=== PATIENT | female | born 1955 | race Caucasian/White ===

== ENCOUNTER 2022-12-08 10:09 | Outpatient (CLI) | payer MEDICARE, SELFPAY ==
--- NOTE | 2022-12-08 10:26 | XRR_ITS ---
PROCEDURE INFORMATION: Exam: XR Cervical Spine Exam date and time: 12/08/2022 10:29 AM Age: 67 years old Clinical indication: Neck pain; Patient HX: Pain in the patient's neck and numbness down both arms for a couple of months. The patient also states that they get frequent headaches; Additional info: Arm nubness, neck pain TECHNIQUE: Imaging protocol: Radiologic exam of the cervical spine. Views: 4 or 5 views. COMPARISON: No relevant prior studies available. FINDINGS: Bones/joints: Lower cervical spine moderate to severe disc space narrowing and productive degenerative endplate changes most significant at C5-C6 and C6-C7. Soft tissues: Unremarkable. XR/XR cervical spine 4-5V [id number] IMPRESSION: Lower cervical spine moderate to severe disc space narrowing and productive degenerative endplate changes most significant at C5-C6 and C6-C7.
== END 2022-12-08 10:10 | disposition home or self-care (01) ==
LOC: RAD 10:18
PROVIDERS: PCP Family Medicine; Visit Provider Family Medicine
DX: M54.2 Cervicalgia (principal); R20.0 Anesthesia of skin; M47.812 Spondylosis without myelopathy or radiculopathy, cervical region
CPT/HCPCS: 72050

== ENCOUNTER 2022-12-15 12:11 | Outpatient (CLI) | payer MEDICARE, SELFPAY ==
--- NOTE | 2022-12-15 12:18 | CT_ITS ---
WS: [id number] LDCT LUNG CANCER SCREENING HISTORY: NICOTINE DEPENDENCE, CIGARETTES, UNCOMPLICATED TECHNIQUE: Axial imaging performed from the apices to 1 cm below the costophrenic angles. Coronal and sagittal reformats are submitted with axial MIP series. All CT scans at [facility] use at least one of these dose optimization techniques: automated exposure control; mA and/or kV adjustment per patient size (includes targeted exams where dose is matched to clinical indication); or iterativ e reconstruction. DLP: 49.82 mGy.cm DIvol: Mean CTDIvol: 0.80 (mGy) COMPARISON: None available. Diagnostic quality: Satisfactory Lungs: No pulmonary nodule or mass. Minimal linear atelectasis at the lung bases. Mild centrilobular emphysema. No endobronchial lesion. Heart: Normal size heart with no pericardial effusion.. Other findings: Moderate atherosclerosis thoracic aorta. No aneurysm. No mediastinal or hilar adenopa thy. Mild LEFT adrenal hyperplasia. Increase in thoracic kyphosis. CT/CT lung screening [id number] IMPRESSION: LUNG-RADS: 1-Negative FOLLOW UP: 12 Month: Continue annual screening with LDCT OTHER FINDINGS (S MODIFIER): None.
== END 2022-12-15 12:12 | disposition home or self-care (01) ==
PROVIDERS: PCP Family Medicine; Visit Provider Family Medicine
DX: Z12.2 Encounter for screening for malignant neoplasm of respiratory organs (principal); F17.210 Nicotine dependence, cigarettes, uncomplicated
CPT/HCPCS: 71271

== ENCOUNTER 2024-09-30 13:13 | Observation (INO) | payer MEDICARE, SELFPAY ==
[2024-09-30] VITALS (9 sets, daily range): BP systolic 102–156; BP diastolic 60–82; PULSE 72–93; RESP 16; TEMP 36.3–37.2; O2SAT 90–95; BMI 24.9; BMI 25.7
--- NOTE | 2024-09-30 13:28 | ED_ITS ---
HPI - Fall General: Chief Complaint: Fall Stated Complaint: fall from ladder Time Seen by Provider: 09/30/24 13:19 History of Present Illness: 69-year-old female was cleaning some lit es on her patio. She was 3-4 steps up on a stepladder and fell backwards. She landed on her right hip/pelvis area and has pain near the pubic symphysis and right pubic rami. She reports she also fell on her outstretched right hand and has a deformity of her right wrist which was splinted by EMS. She has able to wiggle and feel her fingers. She has an abrasion to the right elbow. She thinks she probably hit her head but has no pain. No loss of consciousness. Takes no blood thinners. No neck pain or spine pain. No chest wall pain. No abdominal pain. No left lower extremity or left upper extremity injury. Related Data Allergies Allergy/AdvReac Type Severity Reaction Status Date / Time ampicillin Allergy ALGY-Hives Verified 09/30/24 13:20 Review of Systems General: Reports: 10 or more systems reviewed and unremarkable except in HPI and below Physical Exam Narrative: EXAM NARRATIVE: Colles' deformity of the right wrist. Skin intact. Radial pulse 2+. Moves all fingers normally. Light touch sensation in the fingers and cap refill in the fingers is normal. Right forearm, elbow, humerus, shoulder, clavicle and chest wall is all normal on exam other than an abrasion over her right elbow. Left upper extremity exam unremarkable. Left lower extremity exam unremarkable. Right lower extremity exam unremarkable. She does however, have pain in the pubic symphysis and pubic rami area on the right side with a stable AP compression test. Const: COMMON NORMALS: no limitations, alert and well nourished EXAM LIMITATIONS: no altered mental status HENMT: COMMON NORMALS: normocephalic, atraumatic and external ears normal HEAD & SCALP: normocephalic and atraumatic EXTERNAL EAR: Yes external ears normal MOUTH: no muffled voice Eye: COMMON NORMALS: Equal, round and reactive pupils present, EOMs intact bilaterally, conjunctivae normal and no scleral icterus CONJUNCTIVA: Yes conjunctivae normal PUPIL: Yes Equal, round and reactive pupils present Neck/C-Spine: GENERAL: Yes normal visual inspection, Yes trachea midline, No anterior neck swelling, No tender, No torticollis and No tracheal deviation Chest: CHEST: Yes Symmetrical chest wall rise, No crepitus, No localized rib tenderness with anteroposterior compression and No Sternal flail present Resp: COMMON NORMALS: normal respiratory effort and No use of accessory muscles Cardio: COMMON NORMALS: regular rate and regular rhythm RATE: regular rate RHYTHM: regular rhythm GI: COMMON NORMALS: Soft to palpation and non-tender PALPATION: Yes Soft to palpation and No Guarding due to palpation present (GI) Back/Pelvis: COMMON NORMALS: thoracic and lumbar spine normal to inspection, no thoracic nor lumbar tenderness and thoraco-lumbar ROM normal THORACIC SPINE/UPPER BACK: No thoracic spinal tenderness LUMBAR SPINE/LOWER BACK: No lumbar spinal tenderness PELVIS: Yes no pain with anterior-posterior compression, Yes no pain with lateral compression, Yes tenderness over symphysis pubis and Yes Other pelvic findings (Pain with activation of the hip flexors) COCCYX: Other pelvic findings (Pain with activation of the hip flexors) OTHER: No bony palpation tenderness at the hip or anterior pelvis. She does have some tenderness over the pubic symphysis and with activation of the hip flexors. Neuro: COMMON NORMALS: moves all extremities, no focal motor deficits and no sensory deficits noted SENSORIUM/ORIENTATION: Yes alert SPEECH: speech normal Psych: COMMON NORMALS: mental status grossly normal, Normal thought process present, cooperative, normal affect and speech normal SPEECH: Yes normal speech THOUGHT PROCESS: Normal thought process present Skin: COMMON NORMALS: no rashes or lesions noted, turgor normal and no jaundice GENERAL SKIN EXAM: no rashes or lesions noted and turgor normal Course Vital Signs: Vital signs: Vital Signs Temperature 97.4 F L 09/30/24 13:14 Pulse Rate 75 09/30/24 13:14 Respiratory Rate 16 09/30/24 13:14 Blood Pressure 102/60 09/30/24 13:14 Pulse Oximetry 94 09/30/24 13:14 Oxygen Delivery Me thod Room Air 09/30/24 13:14 MDM - Fall Medical Decision Making 1. Minor closed head injury, age greater than 65. Per trauma guidelines, patient will have a CT scan of the head without contrast to rule out subdural. No palpable scalp hematoma, visible abrasion, or skull depression. Mental status is normal. 2. Suspected Colles' fracture of the right radius. Neurovascularly intact. X- rays pending. 3. Pain in the right pubic symphysis and pubic rami region. CT of the pelvis will be obtained without contrast. Update CT pelvis shows a slightly comminuted acute right inferior pubic ramus fracture with no other fractures. X-ray right wrist. EP interpretation. Patient has a fracture of the distal radius which is comminuted with several fragments. There also appears to be an ulnar styloid fracture. There is impaction noted on the radius. ct head wo: neg Update Discussed with isabelle Sanchez. He is recommended weightbearing as tolerated for the pelvic fracture. He is recommended sugar-tong splint for the radius. He will do a consult. Unfortunately, the patient lives alone and she is unable to use a walker because of her right wrist fracture. Since she cannot bear weight without significant pain, she is going to have to be admitted for nursing care, PT OT eval. She may be able to use a modified walker with forearm supports and a wheelchair but states her house is probably not amenable to a wheelchair as she has steps on all 3 sides and narrow doors going into her bathrooms. Lab Data Radiology Impressions Head CT 09/30/24 13:36 IMPRESSION: 1. No evidence of intracranial hemorrhage or mass effect. 2. No acute intracranial findings. Pelvis CT 09/30/24 13:36 IMPRESSION: 1. Slightly comminuted acute RIGHT inferior pubic ramus fracture. 2. No other acute fractures. 3. 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 4. Sigmoid diverticulosis. Wrist X-Ray 09/30/24 13:36 IMPRESSION: 1. Comminuted impacted fracture of the distal radius with mild volar displacement of several fracture fragments. Avulsion fracture of the ulnar styloid. All radiology interpretation(s) finalized by discharge Discharge Plan Discharge Patient Disposition: Admitted As Inpatient Clinical Impression: Fracture of wrist, Closed fracture of inferior pubic ramus, Unable to ambulate Condition: Stable Referrals: Ailyn Banks DO [Primary Care Provider] - Print Language: Afghan Coding Level of Care Code ED Online Trader for Zully Webster
--- NOTE | 2024-09-30 13:36 | XR_ITS ---
WS: [id number] Exam: XR wrist RT min 3V* [id number] Date/Time of Exam: 09/30/2024 1:38 PM Reason For Exam: trauma/deformity There is an impacted comminuted fracture of the distal radius. There is mild volar displacement of multiple fracture fragments. There it is shortening. There is avulsion of the ulnar styloid. Soft tissue swelling and deformity of the wrist. XR/XR wrist RT min 3V* [id number] IMPRESSION: 1. Comminuted impacted fracture of the distal radius with mild volar displaceme nt of several fracture fragments. Avulsion fracture of the ulnar styloid.
--- NOTE | 2024-09-30 13:36 | CT_ITS ---
WS: [id number] CT pelvis TECHNIQUE: Noncontrast CT of the pelvis with coronal and sagittal reformatted images. CLINICAL INFORMATION: right rami pain after fall from ladder COMPARISON: None. DLP: 306.[address] scans at [facility] use at least one of these dose optimization techniques: automated exposure control; mA and/or kV adjustment per patient size (includes targeted exams where dose is matched to clinical indication); or iterative reconstruction. FINDINGS: Slightly comminuted fracture involving the RIGHT inferior pubic ramus. Normal superior pubic rami. LEFT inferior pubic ramus is normal. Degenerative arthritis lower lumbar spine. Normal bony sacrum and sacral ala. Degenerative arthritis sacroiliac joints. Moderate degenerative narrowing both hips. Chronic spondylolysis L5-S1 with grade 1-2 anterolisthesis measuring 1.3 cm. Mild disc bulging L4-5. Normal sacrococcygeal junction. Sigmoid diverticulosis. CT/CT pelvis con [id number] IMPRESSION: 1. Slightly comminuted acute RIGHT inferior pubic ramus fracture. 2. No other acute fractures. 3. 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 4. Sigmoid diverticulosis.
--- NOTE | 2024-09-30 13:36 | CT_ITS ---
WS: [id number] CT HEAD TECHNIQUE: Noncontrast CT of the head obtained from the skullbase to the vertex. CLINICAL INFORMATION: trauma COMPARISON: None. DLP: 1101.[address] scans at [facility] use at least one of these dose optimization techniques: automated exposure control; mA and/or kV adjustment per patient size (includes targeted exams where dose is matched to clinical indication); or iterative reconstruction. FINDINGS: No evidence of intracranial hemorrhage or mass effect. Ventricular system and basal cisterns are patent. Mild small vessel changes with mild parenchymal volume loss. No extra-axial fluid collections. No evidence of mass or mass effect. Vascular calcification. Paranasal sinuses and mastoid air cells are well aerated. .Normal visualized soft tissues. CT/CT head wo con* [id number] IMPRESSION: 1. No evidence of intracranial hemorrhage or mass effect. 2. No acute intracranial findings.
[2024-09-30] MEDS: ketorolac 30 mg/mL INJ IM (13:42)
[2024-09-30] MEDS: nicotine 14 mg Patch 1 PATCH TRANSDERMA (16:09)
[2024-09-30 16:23] LABS: Basophils # 0.1 10^3/uL (0.0-0.1); Basophils % 0.3 %; Eosinophils # 0.1 10^3/uL (0.0-0.8); Eosinophils % 0.3 %; Hematocrit 49.3 % (36-47); Lymphocytes # 1.3 10^3/uL (0.8-4.8); Lymphocytes % 8.1 %; Mean Corpuscular HGB Conc 32.5 g/dL (30-55); Mean Corpuscular Hemoglobin 30.5 pg (27-33); Mean Corpuscular Volume 93.9 fl (85-98); Monocytes % 6.4 %; Neutrophils # 13.53 10^3/uL (1.8-7.7); Neutrophils % 84.2 %; Nucleated Red Blood Cells % 0 %; Platelet Count 315 10^3/cmm (157-399); Red Blood Count 5.25 10^6/uL (3.85-5.65); Red Cell Distribution Width 13.3 % (12.1-15.1); White Blood Count 16.08 10^3/uL (3.29-11.43)
[2024-09-30 16:37] LABS: Alanine Aminotransferase 25 U/L (0-33); Albumin Level 4.3 g/dL (3.5-5.2); Alkaline Phosphatase 80 U/L (35-105); Anion Gap 16.8 (5-19); Aspartate Amino Transferase 28 U/L (0-32); Blood Urea Nitrogen 9 mg/dL (8-23); Calcium 9.8 mg/dL (8.5-10.5); Carbon Dioxide 25 mmol/L (22-29); Chloride 101 mmol/L (98-107); Globulin 3.1 g/dL (1.3-4.6); Glomerular Filtration Rate 99.4 mL/min (90-130); Glucose 103 mg/dL (65-115); Osmolality Calculated 287 mOsm/kg (285-295); Potassium 3.8 mmol/L (3.5-5.1); Sodium 139 mmol/L (136-145); Total Bilirubin 0.3 mg/dL (0.15-1.2); Total Protein 7.4 g/dL (6.6-8.7)
--- NOTE | 2024-09-30 17:02 | P.HP_ITS ---
Providers/Chief Complaint 2 Admitting Physician: Dalton Graham Primary Care Provider: Ailyn Banks DO Chief Complaint: fall from ladder History of Present Illness 69 year year-old female, with past medical history significant for toboacco abuse who presents after falling from a four- to five-step ladder while cleaning patio lights. Patient landed on her right side on concrete, with her right hip hitting first. She attempted to brace her fall with her right arm, resulting in a right wrist fracture. Patient experienced brief episode of dizziyness and blurry vision immediately after the fall, from possibly minor impact to the right side of her head, though she jose manuel any headache. Patient was able to maneuver up the stairs into her house and called EMS. Initial evaluation in the ER revealed: - Imaging Studies: - Head CT: No evidence of intracranial hemorrhage. - Pelvic CT: Slightly comminuted acute right inferior pubic rami fracture. Incidental finding of sigmoid diverticulosis. - Right Wrist X-ray: Comminuted impacted fracture of the distal radius with mild displacement of several fracture fragments. Ulna fracture also noted. Additional Past Medical History: - Hysterectomy - Tonsillectomy - Cervical spine issues: Lower cervical moderate to severe disc space narrowing at C5-6 and C6-7 (noted on imaging from 2022) - Emphysema: Evidence of centrilobular emphysema on CT scan in 2022 - Diverticulosis (incidental finding on pelvic CT today) Patient was not able to ambulate due to pain who was admitted to the hospital. Review of Systems 2 General: Reports: 10 or more systems reviewed and unremarkable except in HPI and below Medications/Allergies Home Medications ?Medication ?Instructions ?Recorded ?Confirmed ?Last Taken ?Type ibuprofen 200 mg tablet (Advil) 400 mg PO Q6H PRN Feve r Or Pain 09/30/24 09/30/24 Unknown History Allergies Allergy/AdvReac Type Severity Reaction Status Date / Time ampicillin Allergy ALGY-Hives Verified 09/30/24 13:20 Vitals/I&O/Wt Last Vital Signs Temp 97.4 F L 09/30/24 13:14 Pulse 90 09/30/24 15:50 Resp 16 09/30/24 13:14 BP 156/82 09/30/24 15:20 Pulse Ox 93 09/30/24 15:50 O2 Del Method Room Air 09/30/24 15:20 Weight last 48 hrs Weight 65.771 kg Physical Exam 2 Narrative: General -alert awake oriented x3, HEENT this grossly unremarkable HEENT- normocephalic atraumatic CVS -regular rate rhythm Chest -clear to auscultation bilaterally nonlabored respiration Abdomen -soft nontender nondistended Extremity- right upper extremity splint distally, full range of motion of lower extremity. No edema. Data 09/30/24 15:52 09/30/24 15:52 A&P Assessment and plan (1) Closed fracture of inferior pubic ramus: (2) Fracture of wrist: Qualifiers: Encounter type: initial encounter Fracture type: closed Laterality: r ight Qualified Code(s): S62.101A - Fracture of unspecified carpal bone, right wrist, initial encounter for closed fracture (3) Unable to ambulate: Plan 1. Right Distal Radius and Ulna Fractures - Comminuted impacted fracture of the distal radius with mild displacement of several fragments. Ulna fracture also noted. - Orthopedic surgery was consulted in emergency room - Current management with splint/cast. - Pain control as needed. - OT consultation 2. Right Inferior Pubic Rami Fracture - Slightly comminuted acute fracture. - Likely non-surgical management. - Pain control and mobility assessment. - Physical therapy to be initiated as tolerated. 3. Fall - Head CT negative for acute intracranial pathology. - Continue neurological monitoring. - Assess for any delayed symptoms or complications. - Awaiting CBC/BMP ordered by ER after admission 4. Chronic Smoker - Long-standing history of smoking (>50 years, 1 pack/day). - Known centrilobular emphysema (incidental finding on [address]22 CT scan). - Offered nicotine replacement therapy; Patient agreed to 14mg nicotine patch. 5. Cervical Spine Disease - Known moderate to severe disc space narrowing at C5-6 and C6-7. - Currently asymptomatic; no reported numbness or tingling in hands. - Monitor for any new neurological symptoms. 6. Diverticulosis - Incidental finding on recent pelvic CT. - Asymptomatic at present. - Educate Patient on signs of acute diverticulitis. 6. DVT prophylaxis - Lovenox 40 mg SQ daily PDMP PDMP Reviewed: Not Reviewed Attestations 2 Medical Necessity Statement*: anticipate over2 midnights stay in hospital For IV Pain Control and placement Coding Level of Care Code Acute Code for Chg Fwd Diagnoses Closed fracture of inferior pubic ramus S32.599A Fracture of wrist S62.101A Encounter type: initial encounter Fracture type: closed Laterality: right Unable to ambulate R26.2
[2024-09-30] MEDS: enoxaparin 40 mg/0.4 mL Syringe SUBCUT (18:00)
--- NOTE | 2024-09-30 19:41 | PC.NURSE ---
Report was called to Cynthia RODGERS. All questions and concerns were addressed at time of report.
[2024-09-30] MEDS: acetaminophen 325 mg Tablet 650 MG PO (21:36)
[2024-10-01] VITALS (7 sets, daily range): BP systolic 118–148; BP diastolic 71–86; PULSE 89–100; RESP 16–18; TEMP 36.5–37.1; O2SAT 90–94
[2024-10-01] MEDS: acetaminophen 325 mg Tablet 650 MG PO ×4 (03:05→23:29)
[2024-10-01 06:26] LABS: Basophils % 0.5 %; Eosinophils # 0.1 10^3/uL (0.0-0.8); Eosinophils % 0.9 %; Hematocrit 43.6 % (36-47); Lymphocytes # 1.2 10^3/uL (0.8-4.8); Lymphocytes % 14.7 %; Mean Corpuscular HGB Conc 33.3 g/dL (30-55); Mean Corpuscular Hemoglobin 30.6 pg (27-33); Mean Platelet Volume 9.2 fL (7.4-10.4); Monocytes # 0.6 10^3/uL (0.2-0.9); Monocytes % 8.2 %; Neutrophils % 75.3 %; Nucleated Red Blood Cells % 0 %; Platelet Count 278 10^3/cmm (157-399); Red Blood Count 4.74 10^6/uL (3.85-5.65); Red Cell Distribution Width 13.4 % (12.1-15.1); White Blood Count 7.83 10^3/uL (3.29-11.43)
[2024-10-01 06:39] LABS: Anion Gap 13.6 (5-19); Blood Urea Nitrogen 12 mg/dL (8-23); Carbon Dioxide 25 mmol/L (22-29); Chloride 101 mmol/L (98-107); Glomerular Filtration Rate 99.4 mL/min (90-130); Glucose 115 mg/dL (65-115); Osmolality Calculated 283 mOsm/kg (285-295); Potassium 3.6 mmol/L (3.5-5.1); Sodium 136 mmol/L (136-145)
--- NOTE | 2024-10-01 12:11 | PC.CHAP ---
Pastoral Care Encounter/Spiritual Assessment Type of Contact [] Declined snowboard instructor visit [] Patient/Family/Request visit [] Outpatient visit [] Follow-up visit [] Physician referral [] Code/Alert [x] Routine visit [] Staff referral [] Actively dying [] Patient sleeping [] Family support [] [] Out of room [] Palliative care [] [] Receiving care in room [] Pre-surgical visit [] Trauma [] Long length of stay [] ICU visit [] Other: Refused Prayer Relational/Emotional Strength [] Patient feels connected with others/family/visitors/staff [] Distress [] Loneliness/isolation [] Abandonment Spirituality of Patient [] Person of Rosmery [] Attends Alevism of their Rosmery [] Believes in Prayer [] Reads Bible or Zoroastrianism materials [x] There are Spiritual issues to be addressed Manager Books Interventions [] Prayer [x] Active listening [] Non-anxious presence [] Spiritual/emotional support [] Crisis/trauma care [] Spiritual counseling [] Bereavement support [] Provided bereavement packet [] Provided Bible/devotional materials [] Provided toy/stuffed animal, coloring book to patient or family member [] Provided Communion [] Anointing/Wise [] Salvation [] Completed spiritual assessment [] Other: Impact on Illness or Injury [] Angry [] Fearful [] Anxious [] Often cries [] Exhaustion [] Unable to work [] Unable to attend yazidism [] Unable to walk/stand [] Unable to read [] Unable to drive [] Unable to eat/drink [] Unable to sleep [] Unable to be with family [] Patient intubated [] Other: Summary No Prayer Time spent with patient 10 min
--- NOTE | 2024-10-01 15:16 | P.PN_ITS ---
Subjective 2 Subjective: 69 year year-old female, with past [facility] history significant for toboacco abuse who presents after falling from a four- to five-step ladder while cleaning patio lights. Patient landed on her right side on concrete, with her right hip hitting first. She attempted to brace her fall with her right arm, resulting in a right wrist fracture. Patient experienced brief episode of dizziyness and blurry vision immediately after the fall, from possibly minor impact to the right side of her head, though she jose manuel any headache. Patient was able to maneuver up the stairs into her house and called EMS. Initial evaluation in the ER revealed: - Imaging Studies: - Head CT: No evidence of intracranial h emorrhage. - Pelvic CT: Slightly comminuted acute r ight inferior pubic rami fracture. Incidental finding of sigmoid diverticulosis. - Right Wrist X-ray: Comminuted impacted fracture of the distal radius with mild displacement of several fracture fragments. Ulna fracture also noted. Additional Past Medical History: - Hysterectomy - Tonsillectomy - Cervical spine issues: Lower cervical moderate to severe disc space narrowing at C5-6 and C6-7 (noted on imaging from 2022) - Emphysema: Evidence of centrilobular e mphysema on CT scan in 2022 - Diverticulosis (incidental finding on pelvic CT today) 10/01 - Was able to work with therapy today. U sing a walker. Did have some shortness of breath with exertion however this resolved. Offered albuterol but refused. - Pain controlled. Medications: Reviewed: Yes Vitals/I&O/Wt Last Vital Signs Temp 97.7 F 10/01/24 11:27 Pulse 97 10/01/24 11:27 Resp 18 10/01/24 11:27 BP 127/71 10/01/24 11:27 Pulse Ox 94 10/01/24 11:27 O2 Del Method Room Air 10/01/24 11:27 10/01/24 10/01/24 10/01/24 06:59 14:59 22:59 Intake Total 960 / 960 Balance 960 / 960 Weight last 48 hrs Weight 68.538 kg Weight 68.039 kg Weight 65.771 kg Physical Exam 2 Narrative: General -alert awake oriented x3, HEENT this grossly unremarkable HEENT- normocephalic atraumatic CVS -regular rate rhythm Chest -clear to auscultation bilaterally nonlabored respiration Abdomen -soft nontender nondistended Extremity- right upper extremity splint distally, full range of motion of lower extremity. No edema. Data 10/01/24 05:23 10/01/24 05:23 A&P Assessment and plan (1) Closed fracture of inferior pubic ramus: (2) Fracture of wrist: Qualifiers: Encounter type: initial encounter Fracture type: closed Laterality: r ight Qualified Code(s): S62.101A - Fracture of unspecified carpal bone, right wrist, initial encounter for closed fracture (3) Unable to ambulate: Plan 1. Right Distal Radius and Ulna Fractures - Comminuted impacted fracture of the distal radius with mild displacement of several fragments. Ulna fracture also noted. - Orthopedic surgery was consulted in emergency room - Current management with splint Plan: - Ortho consulted. - Placed in a brace - Pain control 2. Right Inferior Pubic Rami Fracture - Slightly comminuted acute fracture. - Likely non-surgical management. Plan: - Limited mobility due to pain - Using a walker with assistance - Will need to work on transfers - Patient is wanting to return home if able to ambulate 3. Fall - Head CT negative for acute intracranial pathology. - Continue neurological monitoring. - Stable - Management as above 4. Chronic Smoker - Long-standing history of smoking (>50 years, 1 pack/day). - Known centrilobular emphysema (incidental finding on [address] scan). Plan: - Patient agreed to 14mg nicotine patch. 5. Cervical Spine Disease - Known moderate to severe disc space narrowing at C5-6 and C6-7. - Currently asymptomatic; no reported numbness or tingling in hands. - Monitor for any new neurological symptoms. 6. Diverticulosis - Incidental finding on recent pelvic CT. - Asymptomatic at present. - Educate Patient on signs of acute diverticulitis. 6. DVT prophylaxis - Lovenox 40 mg SQ daily PDMP PDMP Reviewed: Not Reviewed Attestations 2 Medical Necessity Statement*: anticipate over2 midnights stay in hospital For IV Pain Control and placement Coding Level of Care Code Acute Code for Chg Fwd Diagnoses Closed fracture of inferior pubic ramus S32.599A Fracture of wrist S62.101A Encounter type: initial encounter Fracture type: closed Laterality: right Unable to ambulate R26.2
[2024-10-01] MEDS: enoxaparin 40 mg/0.4 mL Syringe SUBCUT (17:20)
[2024-10-02 04:00] VITALS: BP 149/78; PULSE 90; RESP 16; TEMP 36.8; O2SAT 91
[2024-10-02 05:57] LABS: Basophils # 0.1 10^3/uL (0.0-0.1); Basophils % 0.8 %; Eosinophils # 0.1 10^3/uL (0.0-0.8); Eosinophils % 1.9 %; Hematocrit 42.7 % (36-47); Lymphocytes # 1.8 10^3/uL (0.8-4.8); Lymphocytes % 23.7 %; Mean Corpuscular Hemoglobin 30.3 pg (27-33); Mean Corpuscular Volume 91.6 fl (85-98); Mean Platelet Volume 9.3 fL (7.4-10.4); Monocytes # 0.7 10^3/uL (0.2-0.9); Neutrophils % 64.5 %; Nucleated Red Blood Cells % 0 %; Platelet Count 250 10^3/cmm (157-399); Red Blood Count 4.66 10^6/uL (3.85-5.65); Red Cell Distribution Width 13.3 % (12.1-15.1); White Blood Count 7.44 10^3/uL (3.29-11.43)
[2024-10-02 06:21] LABS: Anion Gap 13.6 (5-19); Blood Urea Nitrogen 11 mg/dL (8-23); Calcium 8.9 mg/dL (8.5-10.5); Carbon Dioxide 26 mmol/L (22-29); Chloride 100 mmol/L (98-107); Glomerular Filtration Rate 122.7 mL/min (90-130); Glucose 106 mg/dL (65-115); Osmolality Calculated 282 mOsm/kg (285-295); Potassium 3.6 mmol/L (3.5-5.1); Sodium 136 mmol/L (136-145)
[2024-10-02 07:46] VITALS: BP 125/78; PULSE 94; RESP 16; TEMP 36.8; O2SAT 91
[2024-10-02] MEDS: acetaminophen 325 mg Tablet 650 MG PO ×3 (08:11→22:09)
[2024-10-02 11:43] VITALS: BP 127/80; PULSE 91; RESP 18; TEMP 36.8; O2SAT 93
[2024-10-02 16:05] VITALS: BP 119/82; PULSE 101; RESP 18; TEMP 36.8; O2SAT 90
--- NOTE | 2024-10-02 16:22 | P.PN_ITS ---
Subjective 2 Subjective: 69 year year-old female, with past [facility] history significant for toboacco abuse who presents after falling from a four- to five-step ladder while cleaning patio lights. Patient landed on her right side on concrete, with her right hip hitting first. She attempted to brace her fall with her right arm, resulting in a right wrist fracture. Patient experienced brief episode of dizziyness and blurry vision immediately after the fall, from possibly minor impact to the right side of her head, though she jose manuel any headache. Patient was able to maneuver up the stairs into her house and called EMS. Initial evaluation in the ER revealed: - Imaging Studies: - Head CT: No evidence of intracranial h emorrhage. - Pelvic CT: Slightly comminuted acute r ight inferior pubic rami fracture. Incidental finding of sigmoid diverticulosis. - Right Wrist X-ray: Comminuted impacted fracture of the distal radius with mild displacement of several fracture fragments. Ulna fracture also noted. Additional Past Medical History: - Hysterectomy - Tonsillectomy - Cervical spine issues: Lower cervical moderate to severe disc space narrowing at C5-6 and C6-7 (noted on imaging from 2022) - Emphysema: Evidence of centrilobular e mphysema on CT scan in 2022 - Diverticulosis (incidental finding on pelvic CT today) 10/01 - Was able to work with therapy today. U sing a walker. Did have some shortness of breath with exertion however this resolved. Offered albuterol but refused. - Pain controlled. 10/02 - Stable overnight, no new complaints. Medications: Reviewed: Yes Vitals/I&O/Wt Last Vital Signs Temp 98.2 F 10/02/24 16:05 Pulse 101 H 10/02/24 16:05 Resp 18 10/02/24 16:05 BP 119/82 10/02/24 16:05 Pulse Ox 90 10/02/24 16:05 O2 Del Method Room Air 10/02/24 16:05 10/02/24 10/02/24 10/02/24 06:59 14:59 22:59 Intake Total 960 / 960 Balance 960 / 960 Weight last 48 hrs Weight 70.352 kg Weight 68.538 kg Weight 68.039 kg Physical Exam 2 Narrative: General -alert awake oriented x3, HEENT- normocephalic atraumatic CVS -regular rate rhythm Chest -clear to auscultation bilaterally nonlabored respiration Abdomen -soft nontender nondistended Extremity- right upper extremity splint distally, full range of motion of lower extremity. No edema. Data 10/02/24 05:02 10/02/24 05:02 A&P Assessment and plan (1) Closed fracture of inferior pubic ramus: (2) Fracture of wrist: Qualifiers: Encounter type: initial encounter Fracture type: closed Laterality: r ight Qualified Code(s): S62.101A - Fracture of unspecified carpal bone, right wrist, initial encounter for closed fracture (3) Unable to ambulate: Plan 1. Right Distal Radius and Ulna Fractures - Comminuted impacted fracture of the distal radius with mild displacement of several fragments. Ulna fracture also noted. - Orthopedic surgery was consulted in emergency room - Current management with splint Plan: - Ortho consulted. Will discuss with Dr. Reed on thursday - hand ortho - Placed in a brace- stable - Pain control 2. Right Inferior Pubic Rami Fracture - Slightly comminuted acute fracture. - Likely non-surgical management. Plan: - Improving - Considering discharging to SNF 3. Fall - Head CT negative for acute intracranial pathology. - Continue neurological monitoring. - Stable - Management as above 4. Chronic Smoker - Long-standing history of smoking (>50 years, 1 pack/day). - Known centrilobular emphysema (incidental finding on [address] CT scan). Plan: - Patient agreed to 14mg nicotine patch. 5. Cervical Spine Disease - Known moderate to severe disc space narrowing at C5-6 and C6-7. - Currently asymptomatic; no reported numbness or tingling in hands. - Monitor for any new neurological symptoms. 6. Diverticulosis - Incidental finding on recent pelvic CT. - Asymptomatic at present. - Educate Patient on signs of acute diverticulitis. 6. DVT prophylaxis - Lovenox 40 mg SQ daily PDMP PDMP Reviewed: Not Reviewed Attestations 2 Medical Necessity Statement*: anticipate over2 midnights stay in hospital For IV Pain Control and placement Coding Level of Care Code Acute Code for Chg Fwd Diagnoses Closed fracture of inferior pubic ramus S32.599A Fracture of wrist S62.101A Encounter type: initial encounter Fracture type: closed Laterality: right Unable to ambulate R26.2
[2024-10-02] MEDS: enoxaparin 40 mg/0.4 mL Syringe SUBCUT (17:39)
[2024-10-02 20:00] VITALS: BP 118/73; PULSE 115; RESP 16; TEMP 37; O2SAT 91
[2024-10-02 23:57] VITALS: BP 131/79; PULSE 98; RESP 18; TEMP 37; O2SAT 93
[2024-10-03 04:00] VITALS: BP 126/69; PULSE 87; RESP 17; TEMP 36.8; O2SAT 94
[2024-10-03 04:05] LABS: Basophils # 0.1 10^3/uL (0.0-0.1); Basophils % 0.8 %; Eosinophils # 0.3 10^3/uL (0.0-0.8); Eosinophils % 3.9 %; Hematocrit 41.4 % (36-47); Lymphocytes # 2.2 10^3/uL (0.8-4.8); Lymphocytes % 29.7 %; Mean Corpuscular HGB Conc 32.9 g/dL (30-55); Mean Corpuscular Hemoglobin 30.9 pg (27-33); Mean Corpuscular Volume 94.1 fl (85-98); Mean Platelet Volume 9.3 fL (7.4-10.4); Monocytes # 0.9 10^3/uL (0.2-0.9); Monocytes % 12.4 %; Neutrophils # 3.99 10^3/uL (1.8-7.7); Neutrophils % 52.9 %; Nucleated Red Blood Cells % 0 %; Platelet Count 197 10^3/cmm (157-399); Red Cell Distribution Width 13.5 % (12.1-15.1); White Blood Count 7.53 10^3/uL (3.29-11.43)
[2024-10-03 04:24] LABS: Blood Urea Nitrogen 14 mg/dL (8-23); Calcium 8.9 mg/dL (8.5-10.5); Carbon Dioxide 26 mmol/L (22-29); Chloride 100 mmol/L (98-107); Glomerular Filtration Rate 99.4 mL/min (90-130); Glucose 105 mg/dL (65-115); Osmolality Calculated 283 mOsm/kg (285-295); Sodium 136 mmol/L (136-145)
[2024-10-03 04:26] LABS: Anion Gap 13.8 (5-19); Potassium 3.8 mmol/L (3.5-5.1)
[2024-10-03 07:40] VITALS: BP 131/79; PULSE 100; RESP 15; TEMP 36.7; O2SAT 91
[2024-10-03] MEDS: acetaminophen 325 mg Tablet 650 MG PO ×2 (08:41→14:04)
--- NOTE | 2024-10-03 11:00 | P.CONIM_ITS ---
Providers/Reason For Consult 2 Consulting Physician/Specialty*: Hospitalist Reason for Consult*: Right distal radius fracture as well as pubic rami fracture Attending Physician: Dalton Graham Primary Care Provider: Ailyn Banks DO History of Present Illness History of Present Illness Cony Gold is a 69 year old female was 3-4 steps up on a stepladder and fell backwards. She landed on her right hip/pelvis area and has pain near the pubic symphysis and right pubic rami. She reports she also fell on her outstretched right hand and has a deformity of her right wrist which was splinted Review of Systems 2 General: Reports: 10 or more systems reviewed and unremarkable except in HPI and below Medications/Allergies Home Medications ?Medication ?Instructions ?Recorded ?Confirmed ?Last Taken ?Type ibuprofen 200 mg tablet (Advil) 400 mg PO Q6H PRN Feve r Or Pain 09/30/24 09/30/24 Unknown History Allergies Allergy/AdvReac Type Severity Reaction Status Date / Time ampicillin Allergy ALGY-Hives Verified 09/30/24 13:20 Current Medications Generic Name Dose Route Start Last Admin Trade Name Freq PRN Reason Stop Dose Admin Acetaminophen 650 mg 09/30/24 17:03 10/03/24 08:41 Acetaminophen 325 Mg Tablet PO 650 mg Q6H PRN Administration Mild/Mod Pain Or Temp >/= 101 Enoxaparin Sodium 40 mg 09/30/24 17:15 10/02/24 17:39 Enoxaparin 40 Mg/0.4 Ml Syringe SUBCUT 40 mg Q24H TYRONE Administration Pantoprazole Sodium 40 mg 10/01/24 09:00 10/03/24 08:[address] 40 Mg Tablet PO Not Given DAILY TYRONE Vitals/I&O/Wt Last Vital Signs Temp 98.1 F 10/03/24 07:40 Pulse 100 10/03/24 07:40 Resp 15 10/03/24 07:40 BP 131/79 10/03/24 07:40 Pulse Ox 91 10/03/24 07:40 O2 Del Method Nasal Cannula 10/03/24 07:40 O2 Flow Rate 2 10/03/24 07:40 10/02/24 10/03/24 10/03/24 22:59 06:59 14:59 Intake Total 480 / 1440 240 / 240 Balance 480 / 1440 240 / 240 Weight last 48 hrs Weight 153 lb Weight 155 lb 1.6 oz Physical Exam 2 Narrative: Alert and oriented x 3 Head is normocephalic atraumatic Respirations are intact No evidence of any rashes or infection Patient was brushing her teeth getting along with a walker. Data 10/03/24 03:30 10/03/24 03:30 A&P Assessment and plan (1) Fracture of wrist: Patient is weightbearing as tolerated on the pelvis and she is nonweightbearing on the right wrist. Will see her in clinic in 1 to 2 weeks to check another x- ray. Qualifiers: Encounter type: initial encounter Fracture type: closed Laterality: r ight Qualified Code(s): S62.101A - Fracture of unspecified carpal bone, right wrist, initial encounter for closed fracture (2) Closed fracture of inferior pubic ramus: PDMP PDMP Reviewed: Not Reviewed Coding Level of Care Code Acute Code for [facility] Fwd Diagnoses Fracture of wrist S62.101A Encounter type: initial encounter Fracture type: closed Laterality: right Closed fracture of inferior pubic ramus S32.599A
[2024-10-03 11:20] VITALS: BP 126/80; PULSE 106; RESP 15; TEMP 36.7; O2SAT 93
[2024-10-03 12:02] VITALS: BP 131/79; PULSE 100; RESP 15; TEMP 36.7; O2SAT 91
--- NOTE | 2024-10-07 14:01 | P.DS_ITS ---
Discharge Providers Date of Admission: 09/30/24 16:04 Date of Discharge: 10/03/2024 Attending Provider at Admission: Dalton Graham Attending Provider at Discharge: Dalton Graham Consults: Orthopedic surgery Primary Care Provider: Ailyn Banks DO Diagnoses at Discharge Discharge Diagnosis (1) Fracture of wrist: Status: Acute Qualifiers: Encounter type: initial encounter Fracture type: closed Laterality: right Qualified Code(s): S62.101A - Fracture of unspecified carpal bone, right wrist, initial encounter for closed fracture (2) Closed fracture of inferior pubic ramus: Status: Acute Reason for Visit Reason for Visit: fall from ladder Hospital Course Hospital Course 69 year year-old female, with past medical history significant for toboacco abuse who presents after falling from a four- to five-step ladder while cleaning patio lights. Patient landed on her right side on concrete, with her right hip hitting first. She attempted to brace her fall with her right arm, resulting in a right wrist fracture. Patient experienced brief episode of dizziyness and blurry vision immediately after the fall, from possibly minor impact to the right side of her head, though she jose manuel any headache. Patient was able to maneuver up the stairs into her house and called EMS. Initial evaluation in the ER revealed: - Imaging Studies: - Head CT: No evidence of intracranial hemorrhage. - Pelvic CT: Slightly comminuted acute right inferior pubic rami fracture. Incidental finding of sigmoid diverticulosis. - Right Wrist X-ray: Comminuted impacted fracture of the distal radius with mild displacement of several fracture fragments. Ulna fracture also noted. Additional Past Medical History: - Hysterectomy - Tonsillectomy - Cervical spine issues: Lower cervical moderate to severe disc space narrowing at C5-6 and C6-7 (noted on imaging from 2022) - Emphysema: Evidence of centrilobular emphysema on CT scan in 2022 - Diverticulosis (incidental finding on pelvic CT today) 10/01 - Was able to work with therapy today. Using a walker. Did have some shortness of breath with exertion however this resolved. Offered albuterol but refused. - Pain controlled. 10/02 - Stable overnight, no new complaints. 10/03 - Seen by orthopedic surgery. Stable for discharge. Outpatient follow up with PCP and orthopedic surgery. Roman wanted to discharge home. did not want to co nsider SNF. She was prescribed a walker. Physical Exam Narrative: General -alert awake oriented x3, HEENT- normocephalic atraumatic CVS -regular rate rhythm Chest -clear to auscultation bilaterally nonlabored respiration Abdomen -soft nontender nondistended Extremity- right upper extremity splint distally, full range of motion of lower extremity. No edema. Discharge Data Studies Completed and Pending Completed Studies During Hospitalization Category Date Time Status CT head wo con* [id number] Stat Cat Scan 09/30/24 13:[address] pelvis wo con [id number] Stat Cat Scan 09/30/24 13:36 Completed XR wrist RT min 3V* [id number] Stat Exams 09/30/24 13:36 Completed Radiology Impressions Head CT 09/30/24 13:36 IMPRESSION: 1. No evidence of intracranial hemorrhage or mass effect. 2. No acute intracranial findings. Pelvis CT 09/30/24 13:36 IMPRESSION: 1. Slightly comminuted acute RIGHT inferior pubic ramus fracture. 2. No other acute fractures. 3. 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 4. Sigmoid diverticulosis. Wrist X-Ray 09/30/24 13:36 IMPRESSION: 1. Comminuted impacted fracture of the distal radius with mild volar displacement of several fracture fragments. Avulsion fracture of the ulnar styloid. Laboratory Results WBC 7.53 10^3/uL (3.29-11.43) 10/03/24 03:30 RBC 4.40 10^6/uL (3.85-5.65) 10/03/24 03:30 Hgb 13.60 g/dL (11.27-16.99) 10/03/24 03:30 Hct 41.4 % (36-47) 10/03/24 03:30 MCV 94.1 fl (85-98) 10/03/24 03:30 MCH 30.9 pg (27-33) 10/03/24 03:30 MCHC 32.9 g/dL (30-55) 10/03/24 03:30 RDW 13.5 % (12.1-15.1) 10/03/24 03:30 Plt Count 197 10^3/cmm (157-399) 10/03/24 03:30 MPV 9.3 fL (7.4-10.4) 10/03/24 03:30 Neut % (Auto) 52.9 % 10/03/24 03:30 Lymph % (Auto) 29.7 % 10/03/24 03:30 [place] % (Auto) 12.4 % 10/03/24 03:30 Eos % (Auto) 3.9 % 10/03/24 03:30 Baso % (Auto) 0.8 % 10/03/24 03:30 Neut # (Auto) 3.99 10^3/uL (1.8-7.7) 10/03/24 03:30 Lymph # (Auto) 2.2 10^3/uL (0.8-4.8) 10/03/24 03:30 [place] # (Auto) 0.9 10^3/uL (0.2-0.9) 10/03/24 03:30 Eos # (Auto) 0.3 10^3/uL (0.0-0.8) 10/03/24 03:30 Baso # (Auto) 0.1 10^3/uL (0.0-0.1) 10/03/24 03:30 Nucleated RBC % (auto) 0 % 10/03/24 03:30 Nucleated RBCs # 0.0 /100WBC 10/03/24 03:30 Sodium 136 mmol/L (136-145) 10/03/24 03:30 Potassium 3.8 mmol/L (3.5-5.1) 10/03/24 03:30 Chloride 100 mmol/L (98-107) 10/03/24 03:30 Carbon Dioxide 26 mmol/L (22-29) 10/03/24 03:30 Anion Gap 13.8 (5-19) 10/03/24 03:30 BUN 14 mg/dL (8-23) 10/03/24 03:30 Creatinine 0.6 mg/dL (0.5-0.9) 10/03/24 03:30 GFR Calculation 99.4 mL/min (90-130) 10/03/24 03:30 Glucose 105 mg/dL (65-115) 10/03/24 03:30 Calculated Osmolality 283 mOsm/kg (285-295) L 10/03/24 03:30 Calcium 8.9 mg/dL (8.5-10.5) 10/03/24 03:30 Total Bilirubin 0.3 mg/dL (0.15-1.2) 09/30/24 15:52 AST 28 U/L (0-32) 09/30/24 15:52 ALT 25 U/L (0-33) 09/30/24 15:52 Alkaline Phosphatase 80 U/L (35-105) 09/30/24 15:52 Total Protein 7.4 g/dL (6.6-8.7) 09/30/24 15:52 Albumin 4.3 g/dL (3.5-5.2) 09/30/24 15:52 Globulin 3.1 g/dL (1.3-4.6) 09/30/24 15:52 Vitals Last Vital Signs Temp 98.1 F 10/03/24 12:02 Pulse 100 10/03/24 12:02 Resp 15 10/03/24 12:02 BP 131/79 10/03/24 12:02 Pulse Ox 91 10/03/24 12:02 O2 Del Method Room Air 10/03/24 11:20 O2 Flow Rate 2 10/03/24 07:40 Discharge Plan Discharge Patient Disposition: Home Condition: Stable Prescriptions: Continued ibuprofen [Advil] 200 mg Tablet 400 mg PO Q6H PRN (Reason: Fever Or Pain) Discharge Orders: Discharge Order (Routine); Ordered 10/03/24 Ordered By: Dalton Graham Other Ambulatory Orders: DME: Walker (Order) Location: None Selected Ordered By: Dalton Graham Referrals: Baltazar Galloway DO [Physician] - 10/11/24 8:45 am Ailyn Banks DO [Primary Care Provider] - 10/11/24 2:15 pm Discharge Diet: Advance as tolerated Discharge Activity: Increase activity as tolerated Patient Instructions: Wrist Fracture in Adults (DC), Pelvic Fracture (DC), Opioid Safety Activity Restrictions/Additional Instructions: Nonweightbearing right wrist Weight-bear as tolerated bilateral lower extremities Follow-up orthopedic clinic in 1 to 2 weeks Discharge Attestations Time Spent in Discharge Care*: greater than 30 min Status at Discharge: Cognitive status at discharge: cognitively intact , Behavioral status at discharge: cooperative , Functional status at discharge: independent ambulation , Overall status at discharge: patient is progressing back to baseline Quality Metrics Clinical Quality Measures [ No reported AMI, CVA or VTE this stay] Coding Level of Care Code Acute Code for Chg Fwd Diagnoses Fracture of wrist S62.101A Encounter type: initial encounter Fracture type: closed Laterality: right Closed fracture of inferior pubic ramus S32.599A
== END 2024-10-03 15:00 | disposition home or self-care (01) ==
LOC: ER 15:37 → ER IP 17:35 → MEDSURG 19:37 → ER IP 10-01 14:06
PROVIDERS: Admitting Provider Hospitalist; Emergency Provider Emergency Medicine; PCP Family Medicine; Visit Provider Hospitalist
DX: S52.571A Other intraarticular fracture of lower end of right radius, initial encounter for closed fracture (principal); S52.611A Displaced fracture of right ulna styloid process, initial encounter for closed fracture; W11.XXXA Fall on and from ladder, initial encounter; J43.2 Centrilobular emphysema; I82.409 Acute embolism and thrombosis of unspecified deep veins of unspecified lower extremity; K57.90 Diverticulosis of intestine, part unspecified, without perforation or abscess without bleeding; M48.02 Spinal stenosis, cervical region; F17.210 Nicotine dependence, cigarettes, uncomplicated; R26.2 Difficulty in walking, not elsewhere classified
CPT/HCPCS: 36415; 70450; 72192; 73110; 80048; 80053; 85025; 96372; 97116; 97161; 97165; 97530; 99285; G0378; J1650; J1885; J9999; L3906

== ENCOUNTER → 2024-10-11 08:36 | Outpatient (BNVA) | payer MEDICARE, SELFPAY | PROVIDERS: PCP Family Medicine; Visit Provider Orthopaedic Surgery | DX: S32.501A Unspecified fracture of right pubis, initial encounter for closed fracture (principal); S52.501A Unspecified fracture of the lower end of right radius, initial encounter for closed fracture; W11.XXXA Fall on and from ladder, initial encounter | CPT/HCPCS: 72190; 73110; 99213 ==

== ENCOUNTER 2024-10-11 11:00 | Outpatient (CLI) | payer MEDICARE, SELFPAY | END 2024-10-11 11:01 | disposition home or self-care (01) | LOC: SPT 11:01 | PROVIDERS: PCP Family Medicine; Visit Provider Orthopaedic Surgery | DX: Z46.89 Encounter for fitting and adjustment of other specified devices (principal); S52.591D Other fractures of lower end of right radius, subsequent encounter for closed fracture with routine healing; X58.XXXD Exposure to other specified factors, subsequent encounter | CPT/HCPCS: 97760; L3982 ==

== ENCOUNTER → 2024-11-10 07:53 | Outpatient (BNVA) | payer MEDICARE, SELFPAY | PROVIDERS: PCP Family Medicine; Visit Provider Orthopaedic Surgery | DX: S62.101A Fracture of unspecified carpal bone, right wrist, initial encounter for closed fracture (principal); S32.501A Unspecified fracture of right pubis, initial encounter for closed fracture; X58.XXXA Exposure to other specified factors, initial encounter | CPT/HCPCS: 72190; 73110; 99213 ==

== ENCOUNTER → 2024-12-22 08:45 | Outpatient (BNVA) | payer MEDICARE, SELFPAY | PROVIDERS: PCP Family Medicine; Visit Provider Orthopaedic Surgery | DX: S32.599D Other specified fracture of unspecified pubis, subsequent encounter for fracture with routine healing (principal); S62.101D Fracture of unspecified carpal bone, right wrist, subsequent encounter for fracture with routine healing; X58.XXXD Exposure to other specified factors, subsequent encounter | CPT/HCPCS: 72190; 73110; 99213 ==

== ENCOUNTER 2024-12-28 14:49 | Outpatient (RCR) | payer MEDICARE, SELFPAY | END 2025-01-02 23:59 | disposition home or self-care (01) | LOC: SOT 14:49 | PROVIDERS: PCP Family Medicine; Visit Provider Orthopaedic Surgery | DX: M25.531 Pain in right wrist (principal) | CPT/HCPCS: 97110; 97166; 97530 ==

== ENCOUNTER 2025-01-03 05:00 | Outpatient (RCR) | payer MEDICARE, SELFPAY | END 2025-02-02 23:59 | disposition home or self-care (01) | LOC: SOT 05:00 | PROVIDERS: PCP Family Medicine; Visit Provider Orthopaedic Surgery | DX: M25.531 Pain in right wrist (principal) | CPT/HCPCS: 97022; 97110; 97140 ==

== ENCOUNTER 2025-02-03 05:00 | Outpatient (RCR) | payer MEDICARE, SELFPAY | END 2025-03-05 23:59 | disposition home or self-care (01) | LOC: SOT 05:00 | PROVIDERS: PCP Family Medicine; Visit Provider Orthopaedic Surgery | DX: S62.101A Fracture of unspecified carpal bone, right wrist, initial encounter for closed fracture (principal) | CPT/HCPCS: 97022; 97110 ==

== ENCOUNTER → 2025-03-30 07:50 | Outpatient (BNVA) | payer MEDICARE, SELFPAY | PROVIDERS: PCP Family Medicine; Visit Provider Orthopaedic Surgery | DX: S62.109D Fracture of unspecified carpal bone, unspecified wrist, subsequent encounter for fracture with routine healing (principal); X58.XXXD Exposure to other specified factors, subsequent encounter | CPT/HCPCS: 99213 ==